=== PATIENT | male | born 1950 | race Caucasian/White ===

== ENCOUNTER 2016-04-19 19:56 | Emergency (ER) | payer MEDICARE, OTHER ==
[2016-04-19] MEDS ORDERED: SODIUM CHLORIDE 0.9% 1,000 ML ONE (21:24)
[2016-04-19] MEDS ORDERED: ONDANSETRON 4 MG VIAL ONE (23:16)
== END 2016-04-19 23:29 | disposition home or self-care (01) ==
LOC: ER 19:56
DX: J11.1 Influenza due to unidentified influenza virus with other respiratory manifestations (principal); J11.2 Influenza due to unidentified influenza virus with gastrointestinal manifestations; F17.200 Nicotine dependence, unspecified, uncomplicated
CPT/HCPCS: 36415; 71020; 80053; 81001; 85025; 87804; 96361; 96374; 99283; J2405

== ENCOUNTER 2016-04-23 07:53 | Emergency (ER) | payer MEDICARE, OTHER ==
[2016-04-23] MEDS ORDERED: SODIUM CHLORIDE 0.9% 1,000 ML ONE (08:29)
[2016-04-23] MEDS ORDERED: ONDANSETRON 4 MG VIAL ONE (08:29)
[2016-04-23] MEDS ORDERED: KETOROLAC 60 MG/2 ML VIAL IM ONE (15:52)
== END 2016-04-23 10:46 | disposition home or self-care (01) ==
LOC: ER 07:53
DX: R11.2 Nausea with vomiting, unspecified (principal); K21.9 Gastro-esophageal reflux disease without esophagitis; F17.200 Nicotine dependence, unspecified, uncomplicated
CPT/HCPCS: 36415; 80053; 81001; 83690; 85025; 96361; 96374; 99283; J2405